=== PATIENT | female | born 1975 ===

== ENCOUNTER 2017-02-07 00:19 | Observation (INO) | payer MEDICAID ==
[2017-02-07 00:33] VITALS: O2SAT 97
--- NOTE | 2017-02-07 02:44 | C.PDOC ---
History Of Present Illness 41 y/o female with psychiatric disorder and etoh abuse here in ED saying she drank too much. pt denies drug use. denies any falls or trauma today. denies ah , hi and si. no physical complaints. Time Seen by Provider: 02/07/17 01:06 Chief Complaint (Nursing): Substance Abuse History Per: Patient History/Exam Limitations: no limitations Onset/Duration Of Symptoms: Days (1) Modifying Factor(s): Alcohol Associated Symptoms: denies: Anger, Anxiety, Depression, Suicidal Thoughts Past Medical History Reviewed: Historical Data, Nursing Documentation, Vital Signs Vital Signs: Last Vital Signs Temp 98.7 F 02/07/17 00:25 Pulse 112 H 02/07/17 00:25 Resp 16 02/07/17 00:25 BP 124/85 02/07/17 00:25 Pulse Ox 97 02/07/17 02:58 - Medical History Other PMH: psychiatric disorder Family History: States: Unknown Family Hx - Social History Hx Alcohol Use: No Hx Substance Use: No - Immunization History Hx Influenza Vaccination: No Hx Pneumococcal Vaccination: No Review Of Systems Constitutional: Negative for: Fever Cardiovascular: Negative for: Chest Pain, Palpitations Respiratory: Negative for: Cough, Shortness of Breath Gastrointestinal: Negative for: Vomiting, Abdominal Pain Neurological: Negative for: Weakness, Numbness Psych: Negative for: Anxiety, Depression, Suicidal ideation Physical Exam - Physical Exam Appears: Non-toxic, No Acute Distress, Other (alcohol on breath) Skin: Warm, Dry Head: Atraumatic, Normacephalic Eye(s): bilateral: Normal Inspection, PERRL Cardiovascular: Rhythm Regular, No Murmur Respiratory: Normal Breath Sounds, No Rales, No Rhonchi, No Wheezing Extremity: Normal ROM Neurological/Psych: Other (oriented x 2, speech slow, moves all extremities. ) ED Course And Treatment O2 Sat by Pulse Oximetry: 97 Medical Decision Making Medical Decision Making: pt intoxicated, will place on obs for safety until sober. ED OBSERVATION Discharge: Yes Date of observation admission: 02/07/17 Time of observation admission: 02:45 - Observation admission statement Patient is being placed in observation because:: to obserse until sober and safe for discharge - Goals of Observation Goals of observation are:: sobriety - Progress Note Progress Note: 02/07/17 05:10 pt alert and awake, speech is clear. gait is steady. pt with no physical complaints. will d/c home, Disposition Counseled Patient/Family Regarding: Diagnosis, Need For Followup - Disposition Disposition: HOME/ ROUTINE Disposition Time: 02:44 Condition: STABLE - Clinical Impression Clinical Impression: Alcohol intoxication
[2017-02-07 05:12] VITALS: BP 149/60; PULSE 90; RESP 20; TEMP 98.1
== END 2017-02-07 05:12 | disposition home or self-care (01) ==
LOC: C.ER 00:19 → C.9OBSV 02:41 → UNDOADMOB 02:41 → UNDODISOB 05:12
PROVIDERS: ADMIT Emergency Medicine; ATTEND Emergency Medicine
DX: F10.129 Alcohol abuse with intoxication, unspecified (principal); Y90.9 Presence of alcohol in blood, level not specified